=== PATIENT | male | born 1995 | race African-American/Black ===

== ENCOUNTER 2017-04-24 12:32 | Emergency (ER) | payer SELFPAY ==
[~2017-04-24] VITALS: Ht 190.5 cm; Wt 68.0 kg
[2017-04-24] MEDS ORDERED: ACETAMINOPHEN 500MG TABLET PO STA (16:58)
[2017-04-24 17:28] LABS: BASOPHILS % 0.4 % (0.0-2.0); EOSINOPHILS % 0.5 % (0.0-5.0); HEMATOCRIT. 43.9 % (42.0-52.0); HEMOGLOBIN. 14.6 g/dL (14.0-18.0); LYMPHOCYTES % 9.7 % (20.0-50.0); MEAN CORPUSCULAR HEMOGLOBIN 28.5 pg (28.0-32.0); MEAN CORPUSCULAR VOLUME 85.7 fL (80.0-94.0); MEAN PLATELET VOLUME 9.7 fl (7.4-10.4); MONOCYTES % 8.1 % (2.0-8.0); NEUTROPHILS % 81.3 % (40.0-76.0); PLATELET 197 x1000/uL (130-400); RED BLOOD CELL COUNT 5.12 mill/uL (4.7-6.1); RED CELL DISTRIBUTION WIDTH 14.1 % (11.6-14.6)
[2017-04-24 17:36] LABS: CARBON DIOXIDE 27 mEq/L (21-32); CHLORIDE 105 mEq/L (98-107)
[2017-04-24 18:00] VITALS: BP 122/62
== END 2017-04-24 18:10 | disposition home or self-care (01) ==
LOC: ER 15:30
DX: J06.9 Acute upper respiratory infection, unspecified (principal)
CPT/HCPCS: 36415; 71010; 80048; 85025; 99285